=== PATIENT | female | born 1995 | race American Indian/Alaskan Native ===

== ENCOUNTER 2019-11-08 09:45 | Emergency (ER) | payer MEDICAID ==
[2019-11-08] MEDS ORDERED: ACETAMINOPHEN 325 MG TAB PO ONE (10:14)
[2019-11-08] MEDS ORDERED: ACETAMINOPHEN 325 MG TAB ONE (10:16)
--- NOTE | 2019-11-08 13:24 | Emergency Department Report ---
Minor Respiratory - HPI Chief Complaint: Upper Respiratory Infection Stated Complaint: WEAKNESS/FLU SX Time Seen by Provider: 11/08/19 12:29 Duration: 2 Days Pain Location: Throat, Nose Severity: moderate Minor Respiratory: Yes Rhinorrhea, Yes Sore Throat, Yes Able to Tolerate Fluids, Yes Cough, Yes Sick Contacts, Yes Fever, No Ear Pain, No Hemoptysis, No Chest Pain, No Shortness of Breath Other History: This is a 24-year-old -[place] female who presents to the emergency room with dizziness, fever, sore throat, cough, vomiting, and myalgias for 2 days. Patient taken NyQuil and DayQuil with minimal improvement of symptoms. Patient reports several people with similar symptoms. Patient also states she had similar symptoms last week but they resolved and returned 2 days ago. No recent travel or unusual foods. She denies chest pain, shortness of breath, wheezing, diarrhea, abdominal pain, or weakness. ED Review of Systems ROS: Stated complaint: WEAKNESS/FLU SX Other details as noted in HPI Constitutional: chills, fever ENT: throat pain, congestion. denies: ear pain Respiratory: cough. denies: no symptoms reported Cardiovascular: denies: chest pain, palpitations Gastrointestinal: nausea, vomiting. denies: abdominal pain, diarrhea Musculoskeletal: myalgia. denies: back pain, joint swelling, arthralgia Skin: denies: rash, lesions Neurological: denies: headache, weakness, paresthesias Psychiatric: denies: anxiety, depression ED Past Medical Hx - Past Medical History Previous Medical History?: No Hx Arthritis: No - Surgical History Past Surgical History?: No - Social History Smoking Status: Never Smoker Substance Use Type: None - Medications Home Medications: Home Medications Medication Instructions Recorded Confirmed Last Taken Type Ibuprofen [Motrin] 600 mg PO Q8H PRN #10 tablet 07/14/16 Unknown Rx Benzonatate [Tessalon Perles] 100 mg PO Q8HR PRN #20 capsule 11/08/19 Unknown Rx Oseltamivir [Tamiflu] 75 mg PO BID #10 cap 11/08/19 Unknown Rx Minor Respiratory Exam - Exam General: Vital signs noted. No distress. Alert and acting appropriately. HEENT: Yes Pharyngeal Erythema (erythematous posterior pharynx, uvula midline without exudated), Yes Moist Mucous Membranes, Yes Rhinorrhea (turbinates congested with clear discharge), No Pharyngeal Exudates, No Conjuctival Injection, No Frontal Tenderness, No Maxillary Tenderness Ear: Neither TM Bulge, Neither TM Erythema, Neither EAC Pain, Neither EAC Discharge Neck: Yes Supple, No Adenopathy Lungs: Yes Good Air Exchange, No Wheezes, No Ronchi, No Stridor, No Cough, No Labored Respirations, No Retractions, No Use of Accessory Muscles, No Other Abnormal Lung Sounds Heart: No Regular (tachycardia), No Murmur Abdomen: Yes Normal Bowel Sounds, No Tenderness, No Peritoneal Signs Skin: No Rash, No Edema Neurologic: Alert and oriented, no deficits. Musculoskeletal: Unremarkable. ED Course Vital Signs 11/08/19 10:12 Temperature 100.4 F H Pulse Rate 124 H Respiratory 18 Rate Blood Pressure 118/67 [Right] O2 Sat by Pulse 100 Oximetry ED Medical Decision Making - Medical Decision Making This is a 24 y.o. female presents with flu like symptoms for 2 days. No active vomiting in ER and tolerating fluids. Positive fever, cough, sore throat consistent with viral illness such as Influenza. Given analgesics and IV fluids while in the ER. Patient Not , chronically ill or immunosuppressed. There is low suspicion for according to exam for emergent CardioPulmonary causes such as Acute Asthma or COPD Exacerbation, acute Heart Failure or exacerbation, PE, PTX, atypical ACS, or PNA. Denies recent travel. Patient symptoms are within 48hrs will start conservative self-care and techniques to reduce spread of infection and self-resolving illness. Start tamiflu and benzonatate. Continue cold and flu preparations [id number]. Discharge with strict return precautions. Follow up with primary care provider within 24 hours. Critical care attestation.: If time is entered above; I have spent that time in minutes in the direct care of this critically ill patient, excluding procedure time. ED Disposition Clinical Impression: Flu-like symptoms, Acute viral syndrome Disposition: -01 TO HOME OR SELFCARE Is pt being admited?: No Condition: Stable Instructions: Viral Syndrome (ED) Additional Instructions: Avoid large crowds to prevent transmission of virus. Increase fluid intake to prevent dehydration. Wash hands frequently. Take Tylenol or ibuprofen every 4-6 hours for relief of headache, fever, and body aches. Return to work after 24 hours of being fever free. 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 Prescriptions: Oseltamivir [Tamiflu] 75 mg PO BID #10 cap Benzonatate [Tessalon Perles] 100 mg PO Q8HR PRN #20 capsule PRN Reason: Cough Referrals: [facility] [Outside] - 3-5 Days [facility] [Outside] - 3-5 Days [facility] [Outside] - 3-5 Days Forms: Work/School Release Form(ED)
[2019-11-08 13:36] VITALS: BP 102/58
[2019-11-08] MEDS ORDERED: SODIUM CHLORIDE 0.9% 1000 ML 1,000 ML IV ONE (13:37)
== END 2019-11-08 15:11 | disposition home or self-care (01) ==
LOC: ED 09:45
DX: B34.9 Viral infection, unspecified (principal); R42 Dizziness and giddiness; Z79.899 Other long term (current) drug therapy
CPT/HCPCS: 96360; 99282; J7030